=== PATIENT | female | born 1975 | race Two or more races ===

== ENCOUNTER 2018-12-30 06:20 | Day surgery (SDC) | payer OTHER ==
[~2018-12-30 06:20] MED LIST: VISTARIL25 MG PO; propanolol PO
[2018-12-30] MEDS ORDERED: ULTRACET PO (14:21)
[2018-12-30] MEDS ORDERED: NEURONTIN300 MG PO (14:22)
[2018-12-31] MEDS ORDERED: PEPCID40 MG PO (05:53)
[2018-12-31] MEDS ORDERED: ZOFRAN8 MG PO (05:53)
== END 2018-12-30 17:40 | disposition home or self-care (01) ==
LOC: CIR.AMB 06:20
DX: K80.10 Calculus of gallbladder with chronic cholecystitis without obstruction (principal)

== ENCOUNTER 2018-12-31 01:24 | Emergency (ER) | payer OTHER ==
[~2018-12-31] VITALS: Ht 160 cm; Wt 63.5 kg
[~2018-12-31 01:24] MED LIST changes: +NEURONTIN300 MG PO; +ULTRACET PO
[2018-12-31] MEDS ORDERED: PEPCID40 MG PO (05:53)
[2018-12-31] MEDS ORDERED: ZOFRAN8 MG PO (05:53)
== END 2018-12-31 06:03 | disposition home or self-care (01) ==
LOC: ER 01:24
DX: R11.2 Nausea with vomiting, unspecified (principal); Z90.49 Acquired absence of other specified parts of digestive tract